=== PATIENT | female | born 1965 ===

== ENCOUNTER 2019-07-29 17:56 | Emergency (ER) | payer OTHER, MEDICARE ==
[~2019-07-29] VITALS: Ht 157.5 cm; Wt 95.8 kg
[2019-07-29 18:02] VITALS: BP 151/100
--- NOTE | 2019-07-29 19:30 | NUR ---
NO ANSWER WHEN CALLED FOR ROOM
--- NOTE | 2019-07-29 19:57 | NUR ---
NO ANSWER WHEN CALLED FROM [facility]
--- NOTE | 2019-07-29 20:25 | NUR ---
NO ANSWER WHEN CALLED FOR US AT THIS TIME
== END 2019-07-29 20:37 | disposition left against medical advice (07) ==
LOC: ED 20:31
DX: M79.661 Pain in right lower leg (principal)
CPT/HCPCS: 99281